=== PATIENT | female | born 1955 | race Caucasian/White ===

== ENCOUNTER 2017-01-20 07:10 | Day surgery (SDC) | payer OTHER ==
[~2017-01-20] VITALS: Ht 170.2 cm; Wt 93.4 kg
[~2017-01-20 07:10] MED LIST: 0.9% Sodium Chloride 1,000 ML IV SCH; FAMO40OR2 PO; RIZA5TAB30 PO; Sodium Chloride LOK Flush 10 mL Syringe IV PRN; fentaNYL-PF 50 mCg/mL 2 mL Inj IVPUSH PRN
[2017-01-20 07:28] VITALS: BP 162/77; PULSE 90; RESP 14; O2SAT 99
[2017-01-20 08:40] VITALS: BP 136/69; PULSE 56; RESP 14; O2SAT 95
[2017-01-20 08:49] VITALS: BP 135/69; PULSE 64; RESP 16; O2SAT 97
[2017-01-20 08:58] VITALS: BP 139/69; PULSE 68; RESP 16; O2SAT 97
--- NOTE | 2017-01-20 08:58 | ENDO ---
[address] [address] ENDOSCOPY PROCEDURE PATIENT: LINDA MENA : 1955 MR#: [id number] ADMIT: 01/20/2017 JOB ID: [id number] PROCEDURE: Esophagogastroduodenoscopy. INDICATION: Gastroesophageal reflux. ASA CLASSIFICATION: 2. MALLAMPATI SCORE: 2. INSTRUMENT USED: GIF H180J PROCEDURE DETAILS: After informed consent was obtained, the patient was brought to the GI suite, where he was placed on oxygen via nasal cannula and monitored with continuous pulse oximeter, telemetry, and blood pressure monitoring. A time-out was performed. Then, he was placed in a left lateral decubitus position and medications were administered for sedation. A bite block was placed. The standard EGD scope was then inserted through the bite block and advanced under direct visualization to the second portion of duodenum without difficulty. FINDINGS: 1. In the duodenal bulb there were 2 punctate ulcers that were clean based with surrounding mucosa erythematous and edematous. Multiple biopsies were obtained. 2. Normal-appearing pylorus in the antrum and body of stomach. The mucosa had erythematous appearance suggestive of mild to moderate gastritis. Multiple random biopsies were obtained. 3. Retroflexed views in the gastric body revealed a normal-appearing cardia and fundus. 4. The GE junction was at approximately 42 cm. Arising from the GE junction there were 2 short tongues of salmon-colored mucosa suggestive of Paul's esophagus. Multiple random biopsies were obtained. The remainder of esophagus otherwise unremarkable. IMPRESSION: 1. Duodenal bulb ulcers. 2. Gastritis. 3. Irregular gastroesophageal junction. RECOMMENDATIONS: 1. Avoid NSAIDs and anticoagulants. 2. Omeprazole 40 mg b.i.d. for 8-12 weeks then daily. 3. Proceed to colonoscopy. COMPLICATIONS: None. ESTIMATED BLOOD LOSS: 5 mL.
--- NOTE | 2017-01-20 09:02 | ENDO ---
[address] [address] ENDOSCOPY PROCEDURE PATIENT: LINDA MENA : 1955 MR#: [id number] ADMIT: 01/20/2017 JOB ID: [id number] PROCEDURE PERFORMED: Colonoscopy. INDICATION: The patient with a personal history of colon polyps. INSTRUMENT USED: A PCF H180L PREP QUALITY: Fair. Please see above for ASA classification, Mallampati score, and medications. PROCEDURE: After completion of the EGD exam, the patient was turned and then a digital rectal exam was performed unremarkable. Next the pediatric colonoscope was inserted into the rectum and advanced under direct visualization to the cecum, which identified by the presence of the ileocecal valve and appendiceal orifice. Once the cecum was reached colonoscope was withdrawn back to the rectum as mucosa and lumen were examined. In the rectum, retroflexion was performed. Following retroflexion, remaining air in the rectum was suctioned and procedure was completed. FINDINGS: 1. In the cecum there was a 3-4 mm sessile polyp that was removed with a cold snare. 2. In the descending colon, there was an approximately 4 mm sessile polyp that was removed with a cold snare. 3. In the rectum there was a 3-4 mm sessile polyp that was removed with cold snare. IMPRESSION: 1. Ascending colon polyp. 2. Descending polyp. 3. Rectal polyp. RECOMMENDATIONS: 1. Repeat colonoscopy in 3 years. 2. Follow up in GI clinic. COMPLICATIONS: None. ESTIMATED BLOOD LOSS: Less than 5 mL.
--- NOTE | 2017-01-21 17:56 | PATH ---
SURGICAL PATHOLOGY Attending Physician:Kenneth Mccormick CASE STATUS: Signed Out PATIENT NAME: LINDA MENA PID: [id number] : 1955 DATE COLLECTED:01/20/2017 18:24 SPECIMEN: 1: Duodenum, Biopsy 2: Gastric, Biopsy 3: Esophagus, Biopsy 4: Colon, Biopsy 5: Colon, Biopsy 6: Rectum, Biopsy CLINICAL HISTORY: 1. DUODENAL BULB BXS 2. RANDOM GASTRIC BXS 3. DISTAL ESOPHAGUS BXS 4. CECAL POLYP 5. DESCENDING COLON POLYP 6. RECTAL POLYP FINAL DIAGNOSIS: 1. Duodenal Bulb Biopsy: Portions of duodenal mucosa with active inflammation, nonspecific. No pathogenic organisms or granulomas identified. Negative for dysplasia and malignancy. 2. Random Gastric Biopsies: Portions of gastric antral and body-type mucosa with chronic active gastritis. Positive for Helicobacter organisms by H&E stain. Negative for intestinal metaplasia, dysplasia, and malignancy. 3. Distal Esophagus Biopsies: Squamocolumnar junctional mucosa with no diagnostic abnormality. Negative for intestinal metaplasia, dysplasia, and malignancy. 4. Cecal Polyp, Biopsy: Portion of tubular adenoma x1; negative for high-grade dysplasia. Superficial portion of colorectal mucosa x1 with no diagnostic abnormality. 5. Descending Colon, Polyp, Biopsy: Portions of tubular adenoma x2; negative for high-grade dysplasia. 6. Rectal Polyp, Biopsy: Tubular adenoma; negative for high-grade dysplasia. ICD10: K63.5 K29.7 GROSS DESCRIPTION: The specimen is received in six formalin filled containers labeled with the patient's name. 1). The specimen is sublabeled "duodenal bulb" and consists of 2 portions of tissue which aggregate to 0.3 x 0.3 x 0.2 CM. The specimen is entirely submitted in cassette 1A. 2). The specimen is sublabeled "random gastric" and consists of portions of tissue which aggregate to 0.2 x 0.2 x 0.1 CM. The specimen is entirely submitted in cassette 2A. 3). The specimen is sublabeled "distal esophagus" and consists of 3 portions of tissue which aggregate to 0.3 x 0.3 x 0.2 CM. The specimen is entirely submitted in cassette 3A. 4). The specimen is sublabeled "cecal polyp" and consists of 2 portions of tissue which aggregate to 0.2 x 0.2 x 0.2 CM. The specimen is entirely submitted in cassette 4A. 5). The specimen is sublabeled "descending colon polyp" and consists of 2 portions of tissue which aggregate to 0.3 x 0.3 x 0.2 CM. The specimen is entirely submitted in cassette 5A. 6). The specimen is sublabeled "rectal polyp" and consists of a less than 0.1 CM extremely tiny portion of tissue which is entirely submitted in cassette 6A. 01/20/2017 [facility] ICD-9 CODES: CPT CODES: 1: 18685 2: 56386 3: 10174 4: 16164 5: 84173 6: 85890 Electronically Signed Out Shauna Lang MD [facility], [place] [address] Technical component performed at [facility], [facility] [address], [place], [address]
== END 2017-01-20 23:59 | disposition home or self-care (01) ==
LOC: END 07:10
PROVIDERS: ATTEND Internal Medicine Gastroenterology
DX: Z12.11 Encounter for screening for malignant neoplasm of colon (principal); D12.0 Benign neoplasm of cecum; D12.4 Benign neoplasm of descending colon; D12.8 Benign neoplasm of rectum; Z86.010 Personal history of colon polyps; K29.50 Unspecified chronic gastritis without bleeding; B96.81 Helicobacter pylori [H. pylori] as the cause of diseases classified elsewhere; K26.9 Duodenal ulcer, unspecified as acute or chronic, without hemorrhage or perforation; K21.9 Gastro-esophageal reflux disease without esophagitis
CPT/HCPCS: 43239; 45385; 99153; G0500; J2250; J3010; J7030